=== PATIENT | male | born 1935 | race Caucasian/White ===

== ENCOUNTER 2018-03-02 11:57 | Inpatient (IN) | payer OTHER ==
[~2018-03-02] VITALS: Ht 167.6 cm; Wt 69.9 kg
[~2018-03-02 11:57] MED LIST: ALLO100T PO; AMOX-426 PO; ASPI-1155 PO; CLOP75TA2 PO; COR6.25 PO; FURO-149 PO; GABA-529 PO; HYDR-4039 PO; INSU100V11 SQ; ISO10 PO; LIP40 PO; METO2.5T6 PO; NPH,100V11 SUBCUT; SYN50 PO; TAMS-11 PO
[2018-03-02 12:10] VITALS: BP_SYST 147
[2018-03-02 13:01] LABS: HEMATOCRIT 31.6 % (36-54); HEMOGLOBIN 9.8 g/dL (14.0-18.0); MEAN CORPUSCULAR HEMOGLOBIN 28 pg (27-31); MEAN CORPUSCULAR HGB CONC 31 % (32-36); MEAN CORPUSCULAR VOLUME 91 fL (79.0-98.0); PLATELET COUNT (AUTO) 82 K/uL (130-430); RED BLOOD CELL COUNT(AUTO) 3.48 MIL/uL (4.2-6.2); RED CELL DISTRIBUTION WIDTH 19.3 % (9.0-15.0); WHITE BLOOD COUNT (AUTO) 5.6 K/uL (4.8-10.8)
[2018-03-02 13:09] LABS: ALANINE AMINOTRANSFERASE 18 U/L (12-78); ALBUMIN 3.2 g/dL (3.4-4.8); ANION GAP 9 (5-15); ASPARTATE AMINOTRANSFERASE 19 U/L (10-37); CALCIUM 9.2 mg/dL (8.4-11.0); CHLORIDE 106 mmol/L (98-107); CREATININE 3.14 mg/dL (0.55-1.30); GLUCOSE 146 mg/dL (70-99); INR 1.2 (0.80-1.20); POTASSIUM 4.2 mmol/L (3.5-5.1); PROTHROMBIN TIME 12.3 SECS (9.5-12.5); SODIUM SERUM 142 mmol/L (136-145); TOTAL BILIRUBIN 0.9 mg/dL (0.0-1.0)
[2018-03-02 13:12] LABS: UREA NITROGEN, BLOOD 118 mg/dL (8-21)
[2018-03-02 13:43] LABS: BASOPHILS % (MANUAL) 0 % (0-2); EOSINOPHILS % (MANUAL) 2 % (0-7); LYMPHOCYTES % (MANUAL) 2 % (20-46); MONOCYTES % (MANUAL) 5 % (0-11)
[2018-03-02] MEDS ORDERED: PRO40 PO (15:33)
[2018-03-02] MEDS ORDERED: VIT1TABL44 PO (15:33)
[2018-03-02] MEDS ORDERED: HYDR-4039 PO (15:33)
[2018-03-02] MEDS ORDERED: CARV12.548 PO (15:33)
[2018-03-02] MEDS ORDERED: GABA-529 PO (15:33)
[2018-03-02] MEDS ORDERED: FURO-150 PO (15:33)
[2018-03-02] MEDS ORDERED: FERR210T PO (15:33)
[2018-03-02] MEDS: 0.45% NACL 1,000 ML IV SCH (15:45)
[2018-03-02] MEDS ORDERED: ONDANSETRON HCL 4 MG/2 ML VIAL IVP PRN (15:45)
[2018-03-02 16:05] VITALS: BP_SYST 147
[2018-03-02 19:56] VITALS: BP_SYST 135
[2018-03-02] MEDS: ACETAMINOPHEN 325 MG TABLET PO PRN (20:48)
[2018-03-03 00:11] VITALS: BP_SYST 156
[2018-03-03 07:00] LABS: ALANINE AMINOTRANSFERASE 17 U/L (12-78); ALBUMIN 3.2 g/dL (3.4-4.8); ANION GAP 11 (5-15); ASPARTATE AMINOTRANSFERASE 18 U/L (10-37); BILIRUBIN,DIRECT 0.4 mg/dL (0.0-0.3); CALCIUM 9.2 mg/dL (8.4-11.0); CHLORIDE 107 mmol/L (98-107); CREATININE 2.97 mg/dL (0.55-1.30); GLUCOSE 154 mg/dL (70-99); POTASSIUM 4.2 mmol/L (3.5-5.1); SODIUM SERUM 142 mmol/L (136-145)
[2018-03-03 07:07] LABS: HEMATOCRIT 30.7 % (36-54); HEMOGLOBIN 9.6 g/dL (14.0-18.0); MEAN CORPUSCULAR HEMOGLOBIN 28 pg (27-31); MEAN CORPUSCULAR HGB CONC 31 % (32-36); MEAN CORPUSCULAR VOLUME 90 fL (79.0-98.0); PLATELET COUNT (AUTO) 79 K/uL (130-430); RED BLOOD CELL COUNT(AUTO) 3.39 MIL/uL (4.2-6.2); RED CELL DISTRIBUTION WIDTH 18.6 % (9.0-15.0); WHITE BLOOD COUNT (AUTO) 5.4 K/uL (4.8-10.8)
[2018-03-03 07:13] LABS: UREA NITROGEN, BLOOD 115 mg/dL (8-21)
[2018-03-03 08:00] VITALS: BP_SYST 140
[2018-03-03] MEDS ORDERED: PANTOPRAZOLE SODIUM 40 MG TAB PO SCH (09:00)
[2018-03-03 11:38] LABS: BASOPHILS % (MANUAL) 0 % (0-2); EOSINOPHILS % (MANUAL) 4 % (0-7); LYMPHOCYTES % (MANUAL) 10 % (20-46); MONOCYTES % (MANUAL) 8 % (0-11)
[2018-03-03 12:00] VITALS: BP_SYST 148
[2018-03-03] MEDS: 0.45% NACL 1,000 ML IV SCH (14:28)
[2018-03-03 17:01] VITALS: BP_SYST 166
[2018-03-03 20:00] VITALS: BP_SYST 154
[2018-03-03] MEDS ORDERED: cloNIDine HCL 0.1 MG TABLET PO PRN (21:15)
[2018-03-04 00:27] VITALS: BP_SYST 150
[2018-03-04] MEDS: ACETAMINOPHEN 325 MG TABLET PO PRN (02:48)
[2018-03-04 05:36] LABS: TOTAL IRON BIND. CAPACITY 294 ug/dL (250-450)
[2018-03-04 08:00] VITALS: BP_SYST 160
[2018-03-04 12:14] VITALS: BP_SYST 160
[2018-03-04 12:45] VITALS: BP_SYST 137
[2018-03-05 12:07] LABS: FERRITIN 153 ng/mL (30-400); FOLATE (FOLIC ACID) >20.0 ng/mL (>3.0)
== END 2018-03-04 12:35 | disposition home or self-care (01) | DRG 913 ==
LOC: SED 11:57 → SMU 15:36
PROVIDERS: ADMIT Internal Medicine; ATTEND Internal Medicine
DX: S09.90XA Unspecified injury of head, initial encounter (principal); N18.6 End stage renal disease; I12.0 Hypertensive chronic kidney disease with stage 5 chronic kidney disease or end stage renal disease; E11.22 Type 2 diabetes mellitus with diabetic chronic kidney disease; E78.00 Pure hypercholesterolemia, unspecified; I25.10 Atherosclerotic heart disease of native coronary artery without angina pectoris; D69.6 Thrombocytopenia, unspecified; D64.9 Anemia, unspecified; D69.1 Qualitative platelet defects; G40.909 Epilepsy, unspecified, not intractable, without status epilepticus; J44.9 Chronic obstructive pulmonary disease, unspecified; M10.9 Gout, unspecified; W18.39XA Other fall on same level, initial encounter; Z79.01 Long term (current) use of anticoagulants; Z86.73 Personal history of transient ischemic attack (TIA), and cerebral infarction without residual deficits; Z88.1 Allergy status to other antibiotic agents; Z88.0 Allergy status to penicillin; Z79.899 Other long term (current) drug therapy; Z79.82 Long term (current) use of aspirin; I25.2 Old myocardial infarction; Y93.89 Activity, other specified; Y92.098 Other place in other non-institutional residence as the place of occurrence of the external cause; Y99.8 Other external cause status; Z95.810 Presence of automatic (implantable) cardiac defibrillator
CPT/HCPCS: 36415; 76700-TC; 80048; 80053; 80076; 82607; 82728; 82746; 83540-TC; 83550-TC; 85007; 85027; 85610-TC; 85730-TC; 99285

== ENCOUNTER 2018-06-17 07:21 | Emergency (ER) | payer OTHER ==
[~2018-06-17] VITALS: Ht 167.6 cm; Wt 67.6 kg
[~2018-06-17 07:21] MED LIST changes: +CARV12.548 PO; +FERR210T PO; +FURO-150 PO; +PRO40 PO; +VIT1TABL44 PO
[2018-06-17 07:33] VITALS: BP_SYST 123
[2018-06-17 08:32] VITALS: BP_SYST 123
== END 2018-06-17 08:32 | disposition home or self-care (01) ==
LOC: SED 07:21
DX: T82.49XA Other complication of vascular dialysis catheter, initial encounter (principal); I25.2 Old myocardial infarction; E11.9 Type 2 diabetes mellitus without complications; I10 Essential (primary) hypertension; E78.00 Pure hypercholesterolemia, unspecified; Z88.0 Allergy status to penicillin; Z88.8 Allergy status to other drugs, medicaments and biological substances; Z79.82 Long term (current) use of aspirin; Z79.899 Other long term (current) drug therapy; X58.XXXA Exposure to other specified factors, initial encounter
CPT/HCPCS: 99282